=== PATIENT | male | born 1965 | race African-American/Black ===

== ENCOUNTER → 2016-05-08 | Outpatient (CLI) | payer OTHER ==
--- NOTE | 2016-05-18 17:30 | PATHOLOGY ---
PATHOLOGY REPORT * * * * * * * * FINAL DIAGNOSIS: Skin, right foot, biopsy: - Atypical squamous proliferation with verrucous features (see comment). COMMENT: The lesion identified as transected and not entirely visualized. Although I favor this represents a verruca, I cannot entirely exclude a squamous cell carcinoma, verrucous type. Clinical correlation and consideration for repeat excision if the lesion persists or regrows is recommended. REPORT ELECTRONICALLY SIGNED BY: Fariba Watson MD DATE/TIME: 05/18/2016 17:30 * * * * * * * * MICROSCOPIC DESCRIPTION: Sections show a tangential, irregular hyperkeratotic, endophytic acanthotic lesion. There is marked tiered parakeratosis. There is papillomatosis and slight hypergranulosis. The sections are somewhat tangential and there is marked overlying hyperkeratosis which distorts interpretation. Definitive features of invasive carcinoma are not identified. The lesion is transected and the base is not entirely visualized. GROSS PATHOLOGY: The specimen is received in formalin labeled "Wayne Rosales foot". Received is a segment of pink-garcia, flaky to light garcia, focally crusted possible skin measuring 1.3 x 1.2 x 1.0 cm in greatest dimensions. The surgical margin is not discernible grossly. The specimen is trisected and entirely submitted in cassette A1. (CAA; 05/08/2016) INITIAL CPT CODE(S): 22215 Professional services performed under supervision of [facility] at [address] [place] [address]. Technical services performed under supervision of [facility] at [address] [place] [address], [address] [address]. SPECIMEN(S) RECEIVED: A.Right foot CLINICAL HISTORY: None provided PATIENT: ROYAL ITALO /AGE: 810/06/1965 (Age: 50) PATIENT #: [id number] ALT CASE #: SPECIMEN COLLECTION DATE: 05/08/2016 SPECIMEN RECEIVED DATE: 05/08/2016 [facility] - [address] [place] [address] - PHONE: [phone] * * * END OF REPORT * * *
== END | disposition home or self-care (01) ==
LOC: SPEC 14:34
PROVIDERS: ATTEND Podiatrist Foot & Ankle Surgery
DX: D23.71 Other benign neoplasm of skin of right lower limb, including hip (principal)
CPT/HCPCS: 88305

== ENCOUNTER → 2019-11-21 | Outpatient (CLI) | payer OTHER | LOC: LAB 12:06 | PROVIDERS: ATTEND Internal Medicine Gastroenterology | DX: Z01.812 Encounter for preprocedural laboratory examination (principal); Z12.11 Encounter for screening for malignant neoplasm of colon; Z20.828 Contact with and (suspected) exposure to other viral communicable diseases | CPT/HCPCS: U0003-CS ==

== ENCOUNTER → 2019-11-24 | Day surgery (SDC) | payer OTHER ==
[~2019-11-24] MED LIST: IV RINGERS,LACTATED 1000ML 1,000 ML IV ONE; PROPOFOL 10 MG/ML (20ML) VIAL. IV ONE
[2019-11-24 10:07] VITALS: BP 150/81
--- NOTE | 2019-11-28 08:07 | PATHOLOGY ---
[facility] Accession Number: [id number] . 01 Material submitted: . colon - TRANSVERSE COLON POLYP. Modifiers: transverse . 01 Clinical history: . DIFFUSE ABDOMINAL PAIN, SCREENING . 02 Diagnosis: Colon biopsies, transverse colon polyp: - Tubular adenoma. LBQ 11/27/2019 1632 Local . 02 Comment: There is no high grade dysplasia or evidence of malignancy. (JPM/db; 11/27/2019) . 02 Electronically signed: . Golden Farah MD, Pathologist NPI- [id number] . 01 Gross description: . The specimen is received in formalin, labeled "[place], [place], transverse colon polyp" and consists of multiple fragments of garcia tissue measuring 2.2 x 0.8 x 0.3 cm in aggregate which are entirely submitted in A1. (SDY; 11/25/2019) SYU/SYU 11/25/2019 1122 Local . 02 Pathologist provided ICD-10: D12.3 . 02 CPT . 749991 Specimen Comment: A courtesy copy of this report has been sent to [phone], [phone] Specimen Comment: [id number] Specimen Comment: Report sent to / DR LIM Performed at: 01 [facility] [address], [place], [place] [id number] MD Lenard Demarco MD Phone: [phone] Performed at: 02 [facility] [address] [place], [place] [id number] MD Golden Farah MD Phone: [phone]
== END | disposition home or self-care (01) ==
LOC: ENDOS 08:34
PROVIDERS: ATTEND Internal Medicine Gastroenterology
DX: Z12.11 Encounter for screening for malignant neoplasm of colon (principal); K29.50 Unspecified chronic gastritis without bleeding; D12.3 Benign neoplasm of transverse colon; K64.0 First degree hemorrhoids; K57.30 Diverticulosis of large intestine without perforation or abscess without bleeding; Z79.899 Other long term (current) drug therapy; Z87.891 Personal history of nicotine dependence; Z82.49 Family history of ischemic heart disease and other diseases of the circulatory system
CPT/HCPCS: 43235; 45385; 88305; J2704

== ENCOUNTER → 2019-12-26 | Outpatient (CLI) | payer OTHER ==
[2019-11-24 10:07] VITALS: BP 150/81
[~2019-12-26] MED LIST changes: +CONTRAST GIVEN. MC PRN; +IOHEXOL 240 MG/ML 50ML VIAL. PO ONE; +IOHEXOL 300 MG/ML 100ML VIAL. IV ONE; -IV RINGERS,LACTATED 1000ML 1,000 ML IV ONE; -PROPOFOL 10 MG/ML (20ML) VIAL. IV ONE
--- NOTE | 2019-12-26 09:44 | RAD ---
EXAM: Abdomen and pelvis CT with intravenous contrast. HISTORY: Pain. TECHNIQUE: Computed tomographic images of the abdomen and pelvis were obtained following the administration of intravenous contrast. Multiplanar reformatting was performed. *One or more of the following individualized dose reduction techniques were utilized for this examination: 1. Automated exposure control. 2. Adjustment of the mA and/or kV according to patient size. 3. Use of iterative reconstruction technique. COMPARISON: None. FINDINGS: Evaluation of the lower thorax demonstrates posterior dependent and basilar atelectasis. There is also lingular atelectasis or scarring. There is no infiltrate or pleural effusion. The heart is normal in size. No hepatic lesion is seen. The liver is prominent in size, likely appropriate for patient body habitus. The gallbladder, pancreas, spleen, adrenal glands and left kidney are unremarkable. There is a 1.8 cm simple appearing cyst within the upper mid zone of the right kidney. There is no appendicitis. There is no bowel obstruction. There are few colonic diverticula. There is no evidence of diverticulitis. The aorta is normal in caliber. There is a small fat-containing umbilical hernia. There is slight stranding within the herniated fat. There are small fat-containing inguinal hernias. There is no lymphadenopathy. The urinary bladder is unremarkable. There is no fracture or suspicious osseous lesion. IMPRESSION: 1. Small fat-containing abdominal hernia. There is slight stranding involving the herniated fat which may be due to a component of incarceration. Correlate with physical exam findings. There are also small fat-containing inguinal hernias. 2. 1.8 cm simple appearing right renal cyst. Follow-up is not routinely recommended for simple renal cysts. 3. Few colonic diverticula. Electronically signed by: Venessa Chang MD (12/26/2019 9:41 AM) [place] [id number]
== END ==
LOC: CT 09:06
PROVIDERS: ATTEND Internal Medicine Gastroenterology
DX: K57.30 Diverticulosis of large intestine without perforation or abscess without bleeding (principal); K40.90 Unilateral inguinal hernia, without obstruction or gangrene, not specified as recurrent; K42.9 Umbilical hernia without obstruction or gangrene; K37 Unspecified appendicitis; J98.11 Atelectasis; N28.1 Cyst of kidney, acquired
CPT/HCPCS: 74177; Q9966; Q9967

== ENCOUNTER → 2020-02-19 | Outpatient (CLI) | payer OTHER ==
[2019-11-24 10:07] VITALS: BP 150/81
[~2020-02-19] MED LIST changes: -CONTRAST GIVEN. MC PRN; +GABA300C18 PO; +HYDR-3135 PO; -IOHEXOL 240 MG/ML 50ML VIAL. PO ONE; -IOHEXOL 300 MG/ML 100ML VIAL. IV ONE; +PALI117D IM
== END ==
LOC: LAB 12:52
PROVIDERS: ATTEND Surgery
DX: Z01.812 Encounter for preprocedural laboratory examination (principal); U07.1 COVID-19; K42.0 Umbilical hernia with obstruction, without gangrene
CPT/HCPCS: U0003

== ENCOUNTER → 2020-03-11 | Outpatient (CLI) | payer OTHER ==
[2019-11-24 10:07] VITALS: BP 150/81
[~2020-03-11] MED LIST changes: +OXYC1TAB15 PO
== END ==
LOC: LAB 09:44
PROVIDERS: ATTEND Surgery
DX: Z01.812 Encounter for preprocedural laboratory examination (principal); K42.9 Umbilical hernia without obstruction or gangrene; Z20.828 Contact with and (suspected) exposure to other viral communicable diseases
CPT/HCPCS: U0003

== ENCOUNTER 2020-03-15 05:47 | Day surgery (SDC) | payer OTHER ==
[~2020-03-15] VITALS: Ht 175.3 cm; Wt 110.5 kg
[~2020-03-15 05:47] MED LIST changes: -OXYC1TAB15 PO
[2020-03-15] MEDS ORDERED: ACETAMINOPHEN 500 MG TABLET PO ONE ×2 (06:08→06:30)
[2020-03-15] MEDS ORDERED: PROPOFOL 10 MG/ML (20ML) VIAL. IV ONE (06:40)
[2020-03-15] MEDS ORDERED: LIDOCAINE 2% PF 5 ML VIAL. ONE (06:40)
[2020-03-15] MEDS ORDERED: ONDANSETRON PF 4 MG/2 ML VIAL. ONE (06:40)
[2020-03-15] MEDS ORDERED: DEXAMETHASONE SOD PHOS 20 MG/5 ML VIAL. ONE (06:40)
[2020-03-15] MEDS ORDERED: ROCURONIUM 50 MG/5 ML VIAL. ONE (06:40)
[2020-03-15] MEDS ORDERED: DEXAMETHASONE SOD PHOS 4 MG/ML VIAL ONE (06:40)
[2020-03-15] MEDS ORDERED: fentaNYL PF VIAL 100 MCG/2 ML VIAL IV PRN (07:00)
[2020-03-15] MEDS ORDERED: ONDANSETRON PF 4 MG/2 ML VIAL. IV PRN (07:00)
[2020-03-15] MEDS ORDERED: MINERAL OIL for SURGERY 10 ML VIAL. MC ONE (07:00)
[2020-03-15] MEDS ORDERED: IV RINGERS,LACTATED 1000ML 1,000 ML IV SCH (07:00)
[2020-03-15] MEDS ORDERED: LIDOCAINE 1% PF 2 ML VIAL. ID PRN (07:00)
[2020-03-15] MEDS ORDERED: PROCHLORPERAZINE 10 MG/2 ML VIAL. IV PRN (07:00)
[2020-03-15] MEDS ORDERED: HYDROmorphone 2 MG/ML VIAL IV PRN (07:00)
[2020-03-15] MEDS ORDERED: MORPHINE SULFATE 2 MG/ML VIAL. IV PRN (07:00)
--- NOTE | 2020-03-15 07:21 | PDOC1 ---
History and Physical Date of Admission Date of Admission DATE: 03/15/20 TIME: 07:17 Identification/Chief Complaint Chief Complaint Abdominal pain Source Source: Patient History of Present Illness History of Present Illness 54-year-old male with complaints of painful bulge at his umbilicus been present for many years states is getting larger over the last year and becoming more uncomfortable Past Medical History Cardiovascular: No pertinent hx Pulmonary: No pertinent hx GI: No pertinent hx Heme/Onc: No pertinent hx Hepatobiliary: No pertinent hx Psych: No pertinent hx Musculoskeletal: low back pain Infectious disease: No pertinent hx ENT: No pertinent hx Renal/: No pertinent hx Endocrine: No pertinent hx Dermatology: No pertinent hx Past Surgical History Past Surgical History: Other (Colonoscopy) Family History Family History: No Significant Social History Smoke: Quit (6 months) ALCOHOL: occassional Drugs: None Current Medications Current Medications Current Medications Ondansetron HCl (Zofran) 4 mg PRN Q6HRS PRN IV NAUSEA/VOMITING; Start 03/15/20 at 07:00; Stop 03/16/20 at 06:59 Fentanyl Citrate (Fentanyl 2ml Vial) 25 mcg PRN Q5MIN PRN IV MILD PAIN 1-3; Start 03/15/20 at 07:00; Stop 03/16/20 at 06:59 Fentanyl Citrate (Fentanyl 2ml Vial) 50 mcg PRN Q5MIN PRN IV MODERATE TO SEVERE PAIN; Start 03/15/20 at 07:00; Stop 03/16/20 at 06:59 Morphine Sulfate (Morphine Sulfate) 1 mg PRN Q10MIN PRN IV SEVERE PAIN 7-10; Start 03/15/20 at 07:00; Stop 03/16/20 at 06:59 Ringer's Solution 1,000 ml @ 30 mls/hr Q24H IV Last administered on 03/15/20at 06:26; Start 03/15/20 at 07:00; Stop 03/15/20 at 18:59 Lidocaine HCl (Xylocaine-Mpf 1% 2ml Vial) 2 ml PRN 1X PRN ID PRIOR TO IV START; Start 03/15/20 at 07:00; Stop 03/16/20 at 06:59 Hydromorphone HCl (Dilaudid) 0.5 mg PRN Q10MIN PRN IV SEV PAIN, Second choice; Start 03/15/20 at 07:00; Stop 03/16/20 at 06:59 Prochlorperazine Edisylate (Compazine) 5 mg PACU PRN PRN IV NAUSEA, MRX1; Start 03/15/20 at 07:00; Stop 03/16/20 at 06:59 Cefazolin Sodium/ Dextrose 50 ml @ 100 mls/hr 1X PREOP PRN IV PRIOR TO PROCEDURE; Start 03/15/20 at 06:00; Stop 03/15/20 at 18:00 Acetaminophen (Tylenol) 500 mg STK-MED ONCE PO ; Start 03/15/20 at 06:08; Stop 03/15/20 at 06:08; Status DC Acetaminophen (Tylenol) 1,000 mg 1X ONCE PO Last administered on 03/15/20at 06 :26; Start 03/15/20 at 06:30; Stop 03/15/20 at 06:31; Status DC Dexamethasone Sodium Phosphate (Decadron) 20 mg STK-MED ONCE .ROUTE ; Start 03/15/20 at 06:40; Stop 03/15/20 at 06:41; Status DC Lidocaine HCl (Lidocaine Pf 2% Vial) 5 ml STK-MED ONCE .ROUTE ; Start 03/15/20 at 06:40; Stop 03/15/20 at 06:41; Status DC Propofol (Diprivan) 200 mg STK-MED ONCE IV ; Start 03/15/20 at 06:40; Stop 03/15/20 at 06:41; Status DC Ondansetron HCl (Zofran) 4 mg STK-MED ONCE .ROUTE ; Start 03/15/20 at 06:40; Stop 03/15/20 at 06:41; Status DC Rocuronium Diablo (Zemuron) 50 mg STK-MED ONCE .ROUTE ; Start 03/15/20 at 06:40; Stop 03/15/20 at 06:41; Status DC Dexamethasone Sodium Phosphate (Decadron) 4 mg STK-MED ONCE .ROUTE ; Start 03/15/20 at 06:40; Stop 03/15/20 at 06:41; Status DC Bupivacaine HCl/ Epinephrine Bitart (Sensorcaine-Epi 0.25%-1:724857 Mpf) 30 ml 1X ONCE INJ ; Start 03/15/20 at 07:30; Stop 03/15/20 at 07:31 Mineral Oil (Muri-Lube) 10 ml STK-MED ONCE MC ; Start 03/15/20 at 07:00; Stop 03/15/20 at 07:01; Status DC Active Scripts Active Reported Gabapentin (Gabapentin) 300 Mg Capsule 300 Mg PO TID [place] 10-325 Tablet (Acetaminophen/Hydrocodone Bitart) 1 Each Tablet 1-2 Tab PO Q4-6HRS Invega Sustenna (Paliperidone Palmitate) 117 Mg/0.75 Ml Disp.syrin 0 IM [id number] 30 Days Allergies Allergies: Coded Allergies: No Known Drug Allergies (Unverified , 03/15/20) ROS Gastrointestinal: Yes Abdominal Pain Physical Exam General: Alert, Oriented X3, Cooperative, No acute distress HEENT: Atraumatic, EOMI Lungs: Clear to auscultation, Normal air movement Heart: RRR, no murmurs Abdomen: Normal bowel sounds, Soft, Other (Tender palpation of the umbilicus) Rectal Exam: not examined Extremities: No edema Skin: No significant lesion Neuro: Normal speech Psych/Mental Status: Mental status NL Vitals Vitals Vital Signs Date Time Temp Pulse Resp B/P (MAP) Pulse Ox O2 Delivery O2 Flow Rate FiO2 03/15/20 06:15 97.4 61 20 97 97.4 03/15/20 06:05 143/78 Room Air VTE Prophylaxis Ordered VTE Prophylaxis Devices: Yes VTE Pharmacological Prophylaxi: Contraindicated Assessment/Plan Assessment/Plan Ventral hernia plan robotic laparoscopic repair Justifications for Admission Other Justification ISRRAEL MCLAUGHLIN MD Mar 15, 2020 07:21
[2020-03-15] MEDS ORDERED: BUPIVACAINE-EPI 0.25%-1:200000 MPF 30 ML VIAL. INJ ONE (07:30)
[2020-03-15] MEDS ORDERED: fentaNYL PF VIAL 100 MCG/2 ML VIAL ONE ×2 (07:36→08:59)
[2020-03-15] MEDS ORDERED: NEOSTIGMINE METHYLSULFATE 5 MG/5 ML SYRINGE. ONE (08:08)
[2020-03-15] MEDS ORDERED: GLYCOPYRROLATE 1 MG/5 ML VIAL. ONE (08:09)
--- NOTE | 2020-03-15 08:35 | PDOC4 ---
Operative Note Operative Note Date: March 15, 2020 at 08 32 Preoperative diagnosis: Incarcerated ventral hernia Postoperative diagnosis: Same Procedure: Robotic assisted laparoscopic ventral hernia repair with mesh Surgeon: Quinn Specimen: None Dictation: Patient is a 54-year-old gentleman is complained of a painful bulge at his umbilicus has been getting larger over the last year. Procedure of robotic assisted laparoscopic ventral hernia repair with mesh was explained to the patient detail risk-benefit were also discussed including bleeding infection injury to intra-abdominal contents possible necessitating further open operations alternatives to this procedure also discussed with the patient who seemed to understand and gave both verbal and written consent to have the procedure performed. Patient was taken to the operating room placed the supine position general anesthesia was initiated once patient was sleeping intubated his abdomen was prepped and draped usual sterile fashion using ChloraPrep. An area in the left upper quadrant was injected with quarter percent Marcaine with epinephrine incision was made 11 blade scalpel and a 5 mm Visiport was placed under direct visualization into the abdomen creating pneumoperitoneum once this complete 5 mm scope was placed within the abdomen which was inspected no other red maladies were noted other than ventral hernia with incarcerated omentum. A 8 mm da Claudette port was placed in the left midabdomen and an 8 mm da Claudette port was placed in the left lower abdomen and the 5 mm Visiport was changed out 8 mm da Claudette port. The da Claudette robot was brought and docked all port sites surgeon went to the robotic console using a grasper and Endo Grady scissors the hernia content and sac were reduced the hernia defect was then closed with a running 2 OV lock nonabsorbable suture. Ventral light ST mesh was then placed over the hernia defect and this was sewn into place with a running 2 OV lock absorbable suture. The peritoneum was actually closed over the mesh. The robot was undocked from all port sites all ports were removed the pneumoperitoneum was reduced. The port sites were all closed with 4 subcuticular Monocryl Mastisol Steri-Strips and island dressings were applied. Patient was awakened and extubated operating room taken to recovery in stable condition all sponge instrument needle counts listed as correct estimated blood loss 5 mL ISRRAEL MCLAUGHLIN MD Mar 15, 2020 08:35
--- NOTE | 2020-03-15 08:37 | DISCH ---
DISCHARGE INSTRUCTIONS Condition on Discharge Condition on Discharge: Stable Activity After Discharge Activity Instructions for Disc: Avoid exertion Other activity instructions: No lifting more than 20 pounds for 2 weeks Diet after Discharge Diet after Discharge: Regular Wound Incision Care Other wound/incision instructi: Jeanine shower in 24 hours Contacting the [facility] after DC Call your doctor for: If your condition worsens Follow-Up Follow up with: Dr. Mclaughlin in 2 weeks ISRRAEL MCLAUGHLIN MD Mar 15, 2020 08:37
[2020-03-15] MEDS ORDERED: SEVOFLURANE 61 TO 120 MINUTES. IH ONE (08:38)
[2020-03-15] MEDS ORDERED: OXYC1TAB15 PO (09:07)
[2020-03-15] MEDS ORDERED: oxyCODONE/APAP 5/325 1 TAB TABLET PO ONE ×2 (09:15)
[2020-03-15] MEDS: fentaNYL PF VIAL 100 MCG/2 ML VIAL IV PRN ×2 (09:16→09:25)
[2020-03-15 09:50] VITALS: BP 159/86
== END 2020-03-15 10:25 | disposition home or self-care (01) ==
LOC: SURG 05:47
PROVIDERS: ATTEND Surgery
DX: K43.6 Other and unspecified ventral hernia with obstruction, without gangrene (principal); E66.9 Obesity, unspecified; Z87.891 Personal history of nicotine dependence; Z79.899 Other long term (current) drug therapy; Z98.890 Other specified postprocedural states; Z72.89 Other problems related to lifestyle; Z68.36 Body mass index [BMI] 36.0-36.9, adult
CPT/HCPCS: 49653; J0690; J1100; J2405; J2704; J2710; J3010; J3490; S2900; C1781